=== PATIENT | female | born 1985 | race Caucasian/White ===

== ENCOUNTER 2018-07-23 07:22 | Inpatient (IN) | payer OTHER ==
[2018-07-23] VITALS (30 sets, daily range): BP systolic 94–129; BP diastolic 51–78; PULSE 56–95; TEMP 97.6–98.8
[~2018-07-23] VITALS: Ht 162.6 cm; Wt 63.6 kg
[~2018-07-23 07:22] MED LIST: BIRTH CONTROL PILLS; LEVAQUIN 750MG750 M1 PO; MOTRIN 800800 MG/TAB PO; PNV-DHA PLUS1 SGL PO; PROVENTIL0.09 MG/A1 IH
--- NOTE | 2018-07-23 07:30 | NUR ---
Pt here for scheduled induction for IUGR. 39.3 weeks gestation. G2.L1 Pt to [facility], explained. IV started to left hand, blood drawn from IV site. LR then started and infusing without difficulty. Assessment complete. GBS negative. Pt denies any vaginal bleeding or leaking of fluid. at bedside. Consents signed. 0735:Dr Levy here and at bedside. Will be back over lunch to evaluate. Pt may have epidural when desires. 0800:SVE: 2/75/-2. 0815:FHR reactive, pitocin started at 2mu. Pt up to bathroom, voids.
[2018-07-23 08:51] LABS: BASO % 0.4 % (0.0-2.0); EOS # 0.1 (0.0-0.7); EOS % 1.7 % (0-4.0); GRAN # 4.8 (1.4-6.5); GRAN % 63.3 % (42.2-75.2); HEMOGLOBIN 12.4 g/dl (12.5-16.0); LYMPH # 1.9 (1.2-3.4); LYMPH % 24.9 % (20.0-51.0); MEAN CELL VOLUME 93 fl (80.0-100.0); MEAN CORPUSCULAR HEMOGLOBIN 32 pg (27.0-31.0); MEAN CORPUSCULAR HGB CONC 34 g/dl (33.0-37.0); MEAN PLATELET VOLUME 13.3 fl (7.4-10.4); MONO # 0.7 (0.1-0.6); PLATELET COUNT 114 K/mm3 (130-400); RED BLOOD COUNT 3.94 M/mm3 (4.10-5.30); REDCELL DISTRIBUTION WIDTH-CV 12.6 % (11.5-14.5)
[2018-07-23 08:52] LABS: HEMATOCRIT 36.8 % (37.0-47.0)
--- NOTE | 2018-07-23 10:20 | NUR ---
Dr Levy called and requests this nurse do SVE. SVE:/-2. Updated physician, no new orders. Pt requesting epidural. Maximiliano [employer]MENT[employer] MANAGER called. 1044:Maximiliano [employer] EN[employer]ONMENT[employer] MANAGER at bedside. Pt repositioned to sitting up position. Epidural placed. Single shot done at 1052. Pt tolerated well. See anesthesia notes. After epidural, pt repositioned to left side. 1100:BP 94/53 and pt feeling dizzy. 1102:10mg ephedrine given IV.
--- NOTE | 2018-07-23 12:00 | NUR ---
Recurrent variable decelerations noted. SVE: /-2. raphael catheter placed and pt repositioned to right lateral. 1215:Dr Levy here and reviewed FHR monitor strip. SVE per physician, /1, AROM, clear fluid noted. Pericare done and pt repositioned to right side. Pt c/o nausea. 4mg Zofran given IV, see EMAR.
--- NOTE | 2018-07-23 12:40 | NUR ---
Pt calls out and states "I feel like I need to push." This nurse at bedside and SVE: 100/0. 1243:Dr Espinoza called and notified, physician on his way 1245:Dr espinoza at bedside. Harper catheter removed. 1250:SVE per physician, Complete/+1. Pt prepped for delivery. 1255:Pt begins to push with contractions. 1300:Dr Espinoza at bedside and reviewing FHT monitor strip. Recurrent variable and late decelerations noted. Pt making progress with pushing. O2 on at 10L per mask. 1313: of head and shoulders. Cord clamped and infant in care of Keegan ROWE. 1315: Spontaneous delivery of placenta, LR with pitocin infusing at 333ml/hr. Perineum intact. Fundus firm, bleeding WNL. Pericare done and ice pack and new pads in place. Pt sitting up in bed holding infant skin to skin.
--- NOTE | 2018-07-23 15:45 | NUR ---
Pt up to bathroom with assist. Unable to void at this time, left thigh numb. Pt to wheelchair and to room 214. Fundus firm, bleeding WNL. Pt try to void at 1630. 1630:Pt up to bathroom, with assist. Voids 600cc urine.
[2018-07-24 07:15] LABS: HEMOGLOBIN 11.4 g/dl (12.5-16.0)
[2018-07-24 07:17] LABS: HEMATOCRIT 32.6 % (37.0-47.0)
[2018-07-24 08:00] VITALS: BP 95/57; PULSE 65; TEMP 97.4
[2018-07-24] MEDS ORDERED: MOTRIN 600600 MG/TAB PO (08:42)
--- NOTE | 2018-07-24 10:43 | NUR ---
Initial visit; Mom thanked Yield Engineer for offering congratulations and God's blessings for the of her son. Yield Engineer thanked Mom for choosing [facility].
== END 2018-07-24 14:55 | disposition home or self-care (01) | DRG 807 ==
LOC: OB 07:22 → LDR 07:22 → OB 16:15 → LDR 07-29 07:18
PROVIDERS: ADMIT Obstetrics & Gynecology
PROC: 10E0XZZ Delivery of Products of Conception, External Approach (ICD-10-PCS; principal; 2018-07-23)
PROC: 3E033VJ Introduction of Other Hormone into Peripheral Vein, Percutaneous Approach (ICD-10-PCS; 2018-07-23)
DX: O36.5930 Maternal care for other known or suspected poor fetal growth, third trimester, not applicable or unspecified (principal); Z37.0 Single live birth; Z3A.39 39 weeks gestation of pregnancy; O76 Abnormality in fetal heart rate and rhythm complicating labor and delivery; P05.19 Newborn small for gestational age, other
CPT/HCPCS: J2405; J2590; J2795; J7120

== ENCOUNTER → 2022-03-29 | Outpatient (CLI) | payer OTHER ==
[~2022-03-29] MED LIST changes: +MOTRIN 600600 MG/TAB PO
== END ==
LOC: MC.RAD 12:35
DX: N63.11 Unspecified lump in the right breast, upper outer quadrant (principal)